=== PATIENT | female | born 2000 | race Caucasian/White ===

== ENCOUNTER 2021-12-20 16:21 | Inpatient (IN) ==
[2021-12-20 17:19] LABS: Bilirubin,Urine Negative (Negative); Blood,Urine Negative (Negative); Clarity,Urine Turbid (Clear); Color,Urine Light-Yellow (Yellow); Glucose,Urine (UA) Normal (Normal); Ketones,Urine Negative (Negative); Leukocyte Esterase,Urine Negative (Negative); Mucus,Urine Few per lpf (None-Few); Nitrite,Urine Negative (Negative); Protein,Urine Trace mg/dL (Neg-Trace); RBC,Urine 0-3 per hpf (0-3); Specific Gravity,Urine 1.019 (1.010-1.025); Squamous Epithelial Cell,Urine Moderate per hpf (None-Few); Urobilinogen,Urine Normal (Normal); WBC,Urine 30-50 per hpf (0-3)
[2021-12-20 17:28] LABS: Amphetamine Screen,Urine Negative ng/mL (Cutoff=1000); Barbiturate Screen,Urine Negative ng/mL (Cutoff=200); Benzodiazepines Screen,Urine Negative ng/mL (Cutoff=200); Cannabinoid Screen,Urine Negative ng/mL (Cutoff = 50); Cocaine Screen,Urine Negative ng/mL (Cutoff= 300); Opiate Screen,Urine Negative ng/mL (Cutoff=300); Phencyclidine Screen,Urine Negative ng/mL (Cutoff=25)
[2021-12-20 17:47] LABS: Acetaminophen < 10 mcg/mL (10-20); Alanine Aminotransferase 12 Units/L (7-52); Albumin 4.7 g/dL (3.5-5.7); Albumin/Globulin Ratio 1.9 (1.1-2.2); Alkaline Phosphatase 64 Units/L (34-104); Aspartate Amino Transferase 11 Units/L (13-39); BUN/Creatinine Ratio 16 (6-26); Bilirubin,Direct 0.1 mg/dL (0.0-0.2); Bilirubin,Indirect 0.1 mg/dL (0.0-1.0); Bilirubin,Total 0.2 mg/dL (0.3-1.0); Blood Urea Nitrogen 9 mg/dL (6-20); Calcium 9.4 mg/dL (8.6-10.3); Carbon Dioxide 28 mEq/L (23-29); Chloride 103 mEq/L (98-107); Ethanol < 10 mg/dL (Less than 10); Globulin 2.5 g/dL (2.4-3.5); Glucose 125 mg/dL (70-105); Osmolality,Calculated 280 (280-300); Potassium 3.9 mEq/L (3.5-5.1); Salicylate < 2.5 mg/dL (15.0-30.0); Sodium 135 mEq/L (136-145); Total Protein 7.2 g/dL (6.4-8.9)
[2021-12-20 17:58] LABS: Thyroid Stimulating Hormone 1.315 mcIU/mL (0.340-5.600)
[2021-12-20 19:19] LABS: Basophils % 0.3 %; Eosinophils % 0.5 %; Hematocrit 34.8 % (35.3-44.9); Hemoglobin 11.4 g/dL (11.5-15.4); Immature Granulocytes % 0.3 % (0-4); Lymphocytes # 2.1 K/mcL (0.6-4.6); Lymphocytes % 26.5 %; Mean Corpuscular HGB Conc 32.8 g/dL (31.6-35.5); Mean Corpuscular Hemoglobin 29.3 pg (28.0-33.3); Mean Corpuscular Volume 89.5 fL (83.0-100.0); Mean Platelet Volume 9.2 fL (9.4-12.4); Monocytes # 0.4 K/mcL (0.0-1.3); Monocytes % 5.2 %; Neutrophils # 5.2 K/mcL (1.6-8.9); Platelet Count 268 K/mcL (140-400); Red Blood Count 3.89 M/mcL (3.82-4.97); Red Cell Distribution Width 12.6 % (11.5-14.5); Segmented Neutrophils % 67.2 %; White Blood Count 7.7 K/mcL (4.3-11.1)
[2021-12-20 19:43] LABS: Estimated Average Glucose 111 mg/dl; Hemoglobin A1C 5.5 %
[2021-12-21 00:11] LABS: Influenza A PCR Negative (Negative); Influenza B PCR Negative (Negative); Resp. Syncytial Virus PCR Negative (Negative)
[2021-12-21 00:13] LABS: SARS-CoV-2 by PCR (In House) Negative (Negative)
[2021-12-21] MEDS ORDERED: Melatonin 3 MG TABLET PO PRN (00:27)
[2021-12-21] MEDS ORDERED: *HR* LORazepam 2 MG/ML VIAL IM PRN (00:53)
[2021-12-21] MEDS ORDERED: traZODone 50 MG TABLET PO PRN (00:53)
[2021-12-21] MEDS ORDERED: Acetaminophen 325 MG TABLET PO PRN (00:53)
[2021-12-21] MEDS ORDERED: Haloperidol Lactate 5 MG/ML VIAL IM PRN (00:53)
[2021-12-21] MEDS ORDERED: haloperidoL 5 MG TABLET PO PRN (00:53)
[2021-12-21] MEDS ORDERED: *HR* LORazepam 1 MG TABLET PO PRN (00:53)
[2021-12-21] MEDS: hydrOXYzine pamoate 25 MG CAPSULE PO PRN ×2 (02:07→20:24)
[2021-12-21] MEDS ORDERED: ARIPiprazole 5 MG TABLET PO SCH (09:00)
[2021-12-21] MEDS: ARIPiprazole 5 MG TABLET PO SCH (11:46)
[2021-12-21] MEDS: traZODone 50 MG TABLET PO PRN (20:23)
[2021-12-22] MEDS: ARIPiprazole 5 MG TABLET PO SCH (08:38)
[2021-12-22] MEDS: hydrOXYzine pamoate 25 MG CAPSULE PO PRN (20:49)
[2021-12-22] MEDS: traZODone 50 MG TABLET PO PRN (20:49)
[2021-12-23 09:14] VITALS: BP 106/73; PULSE 101; TEMP 97.3; O2SAT 100
[2021-12-23] MEDS: ARIPiprazole 5 MG TABLET PO SCH (09:32)
== END 2021-12-23 14:42 | disposition home or self-care (01) | DRG 751 ==
LOC: EMEROOARM 16:21 → SUATTDRO 12-21 00:30 → 1ANU 12-21 00:30
PROVIDERS: ADMIT Psychiatry & Neurology Neurology; ATTEND Psychiatry & Neurology Forensic Psychiatry